=== PATIENT | male | born 1985 | race Caucasian/White ===

== ENCOUNTER 2017-01-28 00:16 | Inpatient (IN) | payer BC ==
[2017-01-28] VITALS (25 sets, daily range): BP systolic 106–156; BP diastolic 53–710
[~2017-01-28] VITALS: Ht 190.5 cm; Wt 108.8 kg
[2017-01-28 00:57] LABS: CHLORIDE 105 mEq/L (99-109); POTASSIUM 4.8 mEq/L (3.7-5.4); SODIUM 139 mEq/L (136-147)
[2017-01-28 01:00] LABS: GLUCOSE 167 mg/dL (70-99)
[2017-01-28 01:01] LABS: ANION GAP 9 MEQ/L (2-14)
[2017-01-28 01:02] LABS: TOTAL BILIRUBIN 0.5 mg/dL (0.0-1.0)
[2017-01-28 01:03] LABS: ALKALINE PHOSPHATASE 68 IU/L (3-129)
[2017-01-28 01:04] LABS: MCH 30.2 PG (29.0-34.0); MCHC 34.6 G/DL (30.0-36.0); MCV 87.5 FL (86-99); RBC DIS.WIDTH-CV 11.8 % (11.8-14.6); RBC DIS.WIDTH-SD 37.5 % (39-53); RED BLOOD COUNT 5.26 M/uL (4.00-5.50); UREA NITROGEN (BUN) 18 mg/dL (9-23)
[2017-01-28 01:07] LABS: LIPASE 55 U/L (1.0-51.0)
[2017-01-28 01:09] LABS: GFR ESTIMATE (CALCULATED) > 59 mL/min/
[2017-01-28 01:34] LABS: TROP-I INTERPRETATION NEGATIVE; TROPONIN-I < 0.01 ng/mL (0.0-0.30)
[2017-01-28 01:41] LABS: CREATINE KINASE 149 IU/L (1-294)
[2017-01-28 01:55] LABS: PLAT.SUFFICIENCY VERY DECREASED; PLATELET COUNT 3 K/uL (156-360)
[2017-01-28 02:35] LABS: ABS NEUTROPHIL COUNT 4.6; EOSINOPHIL ABS CT 0; INSTRUMENT ABS NEUTROPHIL CT 4.5 K/uL; MACROCYTES 1+; TEAR DROP CELLS 1+
[2017-01-28 03:22] LABS: INTERNAL CONTROL VALID? YES; MONOSPOT (MONONUCLEOSIS SEROL) NEGATIVE
[2017-01-28 04:14] LABS: HIV INDEX 0.13; HIV-1/2 AB/AG COMBO Nonreactive
[2017-01-28 07:40] LABS: POINT-OF-CARE METER ID UU13113702
[2017-01-28 07:51] LABS: TROP-I INTERPRETATION NEGATIVE; TROPONIN-I < 0.01 ng/mL (0.0-0.30)
[2017-01-28 08:24] LABS: Estimated Average Glucose 103 mg/dL (70-123); HEMOGLOBIN A1c (GLYCOHEMOGLOB) 5.2 % HGB (Below 5.7)
[2017-01-28] MEDS ORDERED: DELTASONE20 M1 PO (09:21)
[2017-01-28 10:16] LABS: LYME DISEASE SEROLOGY SCREEN NEGATIVE (NEGATIVE)
[2017-01-28 10:40] LABS: HEMATOCRIT 38.9 % (38.0-50.0); MCH 29.7 PG (29.0-34.0); MCHC 34.4 G/DL (30.0-36.0); MCV 86.3 FL (86-99); RBC DIS.WIDTH-CV 11.7 % (11.8-14.6); RBC DIS.WIDTH-SD 36.8 % (39-53); RED BLOOD COUNT 4.51 M/uL (4.00-5.50); WHITE BLOOD COUNT 15.6 K/uL (4.1-10.2)
[2017-01-28 11:07] LABS: IMM.PLATELET FRACTION 10.7 (1-7); MEAN PLAT.VOLUME 11.4 uM^3 (9.0-12.4)
[2017-01-28 11:09] LABS: HEMATOLOGY COMMENT 1 SMEAR COMPATIBLE; PLATELET COUNT 12 K/uL (156-360)
[2017-01-28 12:34] LABS: POINT-OF-CARE METER ID UU14100415
[2017-01-29] VITALS (7 sets, daily range): BP systolic 114–140; BP diastolic 55–82
[2017-01-29 06:19] LABS: HEMATOCRIT 39.2 % (38.0-50.0); MCH 29.5 PG (29.0-34.0); MCHC 34.2 G/DL (30.0-36.0); MCV 86.2 FL (86-99); MEAN PLAT.VOLUME 10.9 uM^3 (9.0-12.4); RBC DIS.WIDTH-CV 11.6 % (11.8-14.6); RBC DIS.WIDTH-SD 36.4 % (39-53); RED BLOOD COUNT 4.55 M/uL (4.00-5.50)
[2017-01-29 06:21] LABS: PLATELET COUNT 67 K/uL (156-360)
[2017-01-29 11:36] LABS: ANTI-EPSTEIN-BARR NUCLEAR AG POSITIVE; ANTI-EPSTEIN-BARR VCA IGG POSITIVE; ANTI-EPSTEIN-BARR VCA IGM POSITIVE
[2017-01-29 13:34] LABS: PLAT.SUFFICIENCY DECREASED
[2017-01-29 13:43] LABS: EOSINOPHIL (%) 0 % (0-5); IMMATURE GRANULOCYTE (%) 0.8 % (0.0-0.7); IMMATURE GRANULOCYTE COUNT 0.1 K/uL; INSTRUMENT ABS NEUTROPHIL CT 11.1 K/uL; LYMPHOCYTE COUNT 2.1 K/uL (1.0-2.8); MONOCYTE (%) 8.4 % (3-12); MONOCYTE COUNT 1.2 K/uL (0-0.8); NEUTROPHIL (%) 76.6 % (45-76); NEUTROPHIL COUNT 11.1 K/uL (1.8-6.4)
[2017-01-30 07:47] LABS: HEMATOCRIT 43.6 % (38.0-50.0); MCHC 33.7 G/DL (30.0-36.0); RBC DIS.WIDTH-CV 12.1 % (11.8-14.6); RBC DIS.WIDTH-SD 39.4 % (39-53); WHITE BLOOD COUNT 10.2 K/uL (4.1-10.2)
[2017-01-30 07:49] LABS: PLATELET COUNT 111 K/uL (156-360)
[2017-01-30 08:13] LABS: ANION GAP 5 MEQ/L (2-14); CHLORIDE 104 MEQ/L (99-109); GFR ESTIMATE (CALCULATED) > 59 mL/min/; GLUCOSE 82 mg/dL (70-99); POTASSIUM 4.3 MEQ/L (3.7-5.4); SAMPLE HEMOLYSIS CHECK 0; SAMPLE ICTERIC CHECK 0; SAMPLE LIPEMIA CHECK 0; SODIUM 140 MEQ/L (136-147); UREA NITROGEN (BUN) 18 mg/dL (9-23)
[2017-01-30] MEDS ORDERED: NICOTINE PATCH1 EAC2 TD (08:14)
[2017-01-30] MEDS ORDERED: PREDNISONE20 MG PO (08:14)
[2017-01-30 08:31] VITALS: BP 116/59
[2017-01-31 16:19] LABS: CLINICAL INFORMATION NOT PROVIDED; NUMBER OF MARKERS 22; SPECIMEN VIABILITY 98
== END 2017-01-30 09:29 | disposition home or self-care (01) | DRG 813 ==
LOC: EME 00:16 → EDOF 03:15 → 2EAST 03:15 → ENRESERV 03:19 → 2EAST 12:42
PROVIDERS: Emergency Medicine; Hospitalist; Radiology Diagnostic Radiology
PROC: 30233R1 Transfusion of Nonautologous Platelets into Peripheral Vein, Percutaneous Approach (ICD-10-PCS; principal; 2017-01-28)
PROC: 07DS3ZX Extraction of Vertebral Bone Marrow, Percutaneous Approach, Diagnostic (ICD-10-PCS; 2017-01-29)
DX: D69.3 Immune thrombocytopenic purpura (principal); L53.9 Erythematous condition, unspecified; R21 Rash and other nonspecific skin eruption; R42 Dizziness and giddiness; M25.50 Pain in unspecified joint; F17.200 Nicotine dependence, unspecified, uncomplicated
CPT/HCPCS: 77012; 80048; 80053; 82550; 82948; 83036; 83690; 84484; 85007; 85025; 85027; 86038; 86308; 86618; 86664; 86665; 86703; 86850; 86900; 86901; 87502; 93005; 99281; 99284; J1200; J1566; J1815; J2930; J3010; J7512; P9035